=== PATIENT | male | born 1960 | race African-American/Black ===

== ENCOUNTER 2017-12-01 11:24 | Emergency (ER) | payer OTHER ==
[2017-12-01 11:31] VITALS: BP 122/79; PULSE 120; TEMP 98; BMI 31.5
[2017-12-01] MEDS ORDERED: ACETAMINOPHEN 325 MG TABLET (FP) PO ONE (12:23)
[2017-12-01] MEDS ORDERED: ACETAMINOPHEN 325 MG TABLET (FP) ONE (12:26)
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
== END 2017-12-01 12:28 | disposition home or self-care (01) ==
LOC: JERFT 11:24
DX: R20.0 Anesthesia of skin (principal); Y04.2XXA Assault by strike against or bumped into by another person, initial encounter; Y93.89 Activity, other specified; Y92.9 Unspecified place or not applicable; E78.00 Pure hypercholesterolemia, unspecified; F17.210 Nicotine dependence, cigarettes, uncomplicated
CPT/HCPCS: 99281-25

== ENCOUNTER 2022-01-09 04:10 | Day surgery (SDC) | payer OTHER ==
[2022-01-08 10:49] VITALS: BMI 33.4
[2022-01-09] MEDS ORDERED: PROPOFOL 20 ML ONE (10:06)
[2022-01-09] MEDS ORDERED: MIDAZOLAM HCL 2 MG/2 ML SINGLE DOSE VIAL ONE (10:06)
[2022-01-09] MEDS ORDERED: HEPARIN NA (PORCINE) 5,000 UNITS/ML 1ML VIAL ONE ×2 (10:07→10:49)
[2022-01-09] MEDS ORDERED: LIDOCAINE HCL 1%, 10 MG/ML (20ML VIAL) ONE (10:07)
[2022-01-09] MEDS ORDERED: ceFAZolin SODIUM 1 GM VIAL ONE (10:29)
[2022-01-09] MEDS ORDERED: ceFAZolin SODIUM 1 GM VIAL IVPB ONE (10:33)
[2022-01-09] MEDS ORDERED: LIDOCAINE HCL 1%, 10 MG/ML (20ML VIAL) INF ONE ×2 (10:34)
[2022-01-09] MEDS ORDERED: oxyCODONE HCL 5 MG TABLET PO PRN ×2 (11:01)
[2022-01-09] MEDS ORDERED: ONDANSETRON 4 MG/2 ML VIAL IVPUSH PRN (11:01)
[2022-01-09] MEDS ORDERED: LACTATED RINGERS SOLUTION 1,000 ML IV SCH (11:15)
[2022-01-09 13:37] VITALS: BP 140/93; PULSE 87; TEMP 98.8
== END 2022-01-09 13:22 | disposition home or self-care (01) ==
LOC: JASU-SURG 04:10
PROVIDERS: ATTEND Surgery Vascular Surgery
PROC: B41DYZZ Fluoroscopy of Aorta and Bilateral Lower Extremity Arteries using Other Contrast (ICD-10-PCS; 2022-01-09)
PROC: B41DYZZ Fluoroscopy of Aorta and Bilateral Lower Extremity Arteries using Other Contrast (ICD-10-PCS; principal; 2022-01-09 09:30)
DX: I70.212 Atherosclerosis of native arteries of extremities with intermittent claudication, left leg (principal); Z72.0 Tobacco use; E11.9 Type 2 diabetes mellitus without complications; I10 Essential (primary) hypertension; Z21 Asymptomatic human immunodeficiency virus [HIV] infection status; Z79.899 Other long term (current) drug therapy
CPT/HCPCS: 76000-TC-FY; 82962; 94760; J1644

== ENCOUNTER → 2022-01-30 | Day surgery (SDC) | payer OTHER ==
[2022-01-27 17:07] VITALS: BMI 33.4
[~2022-01-30] MED LIST: CLOPIDOGREL BISULFATE 75 MG TABLET (FP) ONE; CLOPIDOGREL BISULFATE 75 MG TABLET (FP) PO ONE; HEPARIN NA (PORCINE) 5,000 UNITS/ML 1ML VIAL ONE; HEPARIN NA (PORCINE) 5,000 UNITS/ML 1ML VIAL SQ ONE; LIDOCAINE HCL 1%, 10 MG/ML (20ML VIAL) NR ONE; LIDOCAINE HCL 1%, 10 MG/ML (20ML VIAL) ONE; PROPOFOL 20 ML ONE; PROTAMINE SULFATE 50 MG/5 ML VIAL ONE; ceFAZolin SODIUM 1 GM VIAL IVPB ONE; ceFAZolin SODIUM 1 GM VIAL ONE
[2022-01-30 12:33] VITALS: RESP 18; TEMP 97.8
[2022-01-30 12:40] VITALS: BP 157/88; PULSE 78
== END | disposition home or self-care (01) ==
LOC: JASU-SURG 04:00
PROVIDERS: ATTEND Surgery Vascular Surgery
PROC: 047L3DZ Dilation of Left Femoral Artery with Intraluminal Device, Percutaneous Approach (ICD-10-PCS; principal; 2022-01-30 09:30)
DX: I70.212 Atherosclerosis of native arteries of extremities with intermittent claudication, left leg (principal)
CPT/HCPCS: 37226; C1877; 76000-TC-FY; 82962; 94760; J1644

== ENCOUNTER 2022-02-20 04:07 | Day surgery (SDC) | payer OTHER ==
[2022-02-19 10:05] VITALS: BMI 33.4
[2022-02-20] MEDS ORDERED: LIDOCAINE HCL 1%, 10 MG/ML (20ML VIAL) ONE (07:09)
[2022-02-20] MEDS ORDERED: HEPARIN NA (PORCINE) 5,000 UNITS/ML 1ML VIAL ONE ×3 (07:09→09:47)
[2022-02-20] MEDS ORDERED: DEXMEDETOMIDINE HCL 200 MCG/2 ML IVPB ONE (07:10)
[2022-02-20] MEDS ORDERED: KETAMINE HCL 200 MG/20 ML VIAL ONE (07:19)
[2022-02-20] MEDS ORDERED: ACETAMINOPHEN 325 MG TABLET (FP) PO PRN (08:03)
[2022-02-20] MEDS ORDERED: ONDANSETRON 4 MG/2 ML VIAL IVPUSH PRN (08:03)
[2022-02-20] MEDS ORDERED: oxyCODONE HCL 5 MG TABLET PO PRN (08:03)
[2022-02-20 08:08] LABS: HEMOGLOBIN 12.6 GM/dL (11.7-16.9); MCH 29.1 pg (25.7-33.7); MEAN CELL VOLUME 85.5 fl (80-96); MEAN PLT VOLUME 7.8 fl (7.5-11.1); PLATELET COUNT 306 10^3/uL (134-434); RBC 4.32 M/mm3 (4.00-5.60); RDW 15.2 % (11.9-15.9); WHITE BLOOD COUNT 6.7 K/mm3 (4.0-10.0)
[2022-02-20] MEDS ORDERED: LACTATED RINGERS SOLUTION 1,000 ML IV SCH (08:15)
[2022-02-20 08:40] LABS: CALCIUM 9.9 mg/dL (8.5-10.1)
[2022-02-20 08:41] LABS: ALBUMIN 3.6 g/dl (3.4-5.0); BLOOD UREA NITROGEN 21.4 mg/dL (7-18)
[2022-02-20 08:45] LABS: BILIRUBIN,TOTAL 0.4 mg/dL (0.2-1); TOT PROT 7.3 g/dl (6.4-8.2)
[2022-02-20] MEDS ORDERED: ceFAZolin SODIUM 1 GM VIAL ONE (09:29)
[2022-02-20] MEDS ORDERED: ceFAZolin SODIUM 1 GM VIAL IVPB ONE (09:33)
[2022-02-20] MEDS ORDERED: LIDOCAINE HCL 1%, 10 MG/ML (20ML VIAL) INF ONE ×2 (09:35)
[2022-02-20] MEDS ORDERED: PROPOFOL 40 ML ONE (09:38)
[2022-02-20 14:48] VITALS: BP 122/77; PULSE 74; RESP 20; TEMP 97.7
== END 2022-02-20 14:57 | disposition home or self-care (01) ==
LOC: JASU-SURG 04:07
PROVIDERS: ATTEND Surgery Vascular Surgery
PROC: 047K3EZ Dilation of Right Femoral Artery with Two Intraluminal Devices, Percutaneous Approach (ICD-10-PCS; principal; 2022-02-20 09:38)
DX: I70.211 Atherosclerosis of native arteries of extremities with intermittent claudication, right leg (principal)
CPT/HCPCS: 37226; C1877; 36415; 76000-TC-FY; 80053; 85027; 94760; J1644

== ENCOUNTER 2022-09-25 04:14 | Day surgery (SDC) | payer OTHER ==
[2022-09-24 09:46] VITALS: BMI 34.4
[2022-09-25] MEDS ORDERED: HEPARIN NA (PORCINE) 5,000 UNITS/ML 1ML VIAL ONE (07:47)
[2022-09-25] MEDS ORDERED: MIDAZOLAM HCL 2 MG/2 ML SINGLE DOSE VIAL ONE ×2 (09:21→10:39)
[2022-09-25] MEDS ORDERED: PROPOFOL 20 ML ONE (09:21)
[2022-09-25] MEDS ORDERED: ceFAZolin SODIUM 1 GM VIAL ONE (10:36)
[2022-09-25] MEDS ORDERED: ceFAZolin SODIUM 1 GM VIAL IVPB ONE (10:37)
[2022-09-25] MEDS ORDERED: LIDOCAINE HCL 1%, 10 MG/ML (20ML VIAL) INF ONE ×2 (10:39)
[2022-09-25] MEDS ORDERED: DEXAMETHASONE SOD PHOSPHATE 4 MG/1 ML VIAL ONE (10:40)
[2022-09-25] MEDS ORDERED: ONDANSETRON 4 MG/2 ML VIAL ONE (10:40)
[2022-09-25] MEDS ORDERED: oxyCODONE HCL 5 MG TABLET PO PRN (11:58)
[2022-09-25] MEDS ORDERED: ONDANSETRON 4 MG/2 ML VIAL IVPUSH PRN (11:58)
[2022-09-25] MEDS ORDERED: ACETAMINOPHEN 325 MG TABLET (FP) PO PRN (11:58)
[2022-09-25 13:59] VITALS: BP 143/104; PULSE 96; RESP 22; TEMP 97.5
== END 2022-09-25 13:40 | disposition home or self-care (01) ==
LOC: JASU-SURG 04:14
PROVIDERS: ATTEND Surgery Vascular Surgery
PROC: 047L3Z1 Dilation of Left Femoral Artery using Drug-Coated Balloon, Percutaneous Approach (ICD-10-PCS; principal; 2022-09-25 10:30)
DX: I70.212 Atherosclerosis of native arteries of extremities with intermittent claudication, left leg (principal); U07.0 Vaping-related disorder
CPT/HCPCS: 37184; 37225; C2623; 76000-TC-FY; 82962; 94760; C1760; C1769; J1644